=== PATIENT | female | born 1995 | race Caucasian/White ===

== ENCOUNTER 2020-05-15 13:28 | Emergency (ER) | payer BC ==
[~2020-05-15 13:28] MED LIST: CEFUROXIME500 MG PO; IBU400 MG PO; IBUPROFEN600 MG PO; KEFLEX CAP 500500 MG PO; LODINE CAP 300300 MG PO; NAPROSYN500 MG PO; NORCO 5-325 TA1 EACH PO; PYRIDIUM200 MG PO; ZOFRAN ODT 4 MG4 MG PO; ZOFRAN4 MG PO
[2020-05-15] MEDS ORDERED: ZOFRAN4 MG PO (17:19)
[2020-05-15] MEDS ORDERED: IBUPROFEN600 MG PO (17:19)
== END 2020-05-15 17:24 | disposition home or self-care (01) ==
LOC: ER1 13:28
DX: R51.9 Headache, unspecified (principal); R11.0 Nausea; F17.210 Nicotine dependence, cigarettes, uncomplicated; Z87.442 Personal history of urinary calculi
CPT/HCPCS: 96372; 99283; J1885